=== PATIENT | female | born 1955 | race Caucasian/White ===

== ENCOUNTER → 2017-05-13 | Outpatient (CLI) | payer OTHER ==
--- NOTE | 2017-05-13 09:04 | US ---
EXAMINATION TYPE: US abdomen complete DATE OF EXAM: 05/13/2017 COMPARISON: CT March 14, 2015 & US and ultrasound March 06, 2015 CLINICAL HISTORY: R10.84 ABD PAIN. Abdomen pain, N/V EXAM MEASUREMENTS: Liver Length: 16.0 cm Gallbladder Wall: 0.2 cm CBD: 0.3 cm Spleen: 8.4 cm Right Kidney: 10.9 x 4.5 x 5.3 cm Left Kidney: 10.6 x 4.8 x 5.0 cm Pancreas: visualized portions wnl, head and tail limited by overlying midline bowel gas Liver: slightly heterogeneous echogenicity, otherwise wnl Gallbladder: wnl Evidence for sonographic Villegas's sign: no CBD: visualized portions wnl, limited by overlying bowel gas Spleen: visualized portions wnl, limited by rib shadowing and overlying bowel gas Right Kidney: wnl Left Kidney: fullness of renal pelvis without calyceal dilatation suspect extrarenal pelvis. Upper IVC: wnl Abd Aorta: visualized portions wnl, limited by overlying midline bowel gas The visualized liver is heterogeneous. No suspicious masses or ductal dilatation is seen. The intrahe patic portion of the IVC and proximal abdominal aorta are within normal limits. There is no evidence of cholelithiasis. Common bile duct is unremarkable. The visualized portions of the pancreas are h omogenous. The spleen is unremarkable. Kidneys are symmetric and free of hydronephrosis. No renal lesions are seen. IMPRESSION: Suboptimal study without significant finding seen to account for patient's symptoms.
--- NOTE | 2017-05-13 11:10 | MM ---
Reason for exam: screening (asymptomatic). Last mammogram was performed 1 year and 5 months ago. History: Patient is postmenopausal. Benign ultrasound-guided core biopsy of the right breast, October 27, 2003. Took estrogen for 5 years. Physical Findings: A clinical breast exam by your physician is recommended on an annual basis and results should be correlated with mammographic findings. MG Screening Mammo w CAD Bilateral CC and MLO view(s) were taken. Prior study comparison: December 07, 2015, bilateral MG screening mammo w CAD. September 29, 2014, bilateral MG screening mammo w CAD. The breast tissue is heterogeneously dense. This may lower the sensitivity of mammography. Finding: There are typically benign round calcifications in the left breast. Previous mammotome biopsy in the right breast. Asymmetric breast tissue in the left inferior breast since 2012. ASSESSMENT: Benign, BI-RAD 2 RECOMMENDATION: Routine screening mammogram of both breasts in 1 year.
== END | disposition home or self-care (01) ==
LOC: RADMAMWWP 07:32
PROVIDERS: ATTEND Internal Medicine
DX: Z12.31 Encounter for screening mammogram for malignant neoplasm of breast (principal); R10.84 Generalized abdominal pain
CPT/HCPCS: 76700; G0202

== ENCOUNTER → 2024-08-16 | Outpatient (CLI) | payer MEDICARE, OTHER ==
--- NOTE | 2024-08-16 23:22 | BD ---
EXAMINATION TYPE: Axial Bone Density DATE OF EXAM: 08/16/2024 CLINICAL HISTORY: 69 years old Female. ICD-10 CODE: N95.8 OTHER MENOPAUSAL DISORDERS Height: 67in Weight: 176lb FRAX RISK QUESTIONS: Secondary Osteoporosis: Current Tobacco Use: yes RISK FACTORS HISTORY OF: MEDICATIONS: EXAM MEASUREMENTS: Bone mineral densitometry was performed using the [employer] System. Bone mineral density as measured about the Lumbar spine is: ----- L1-L4(G/cm2): 1.206 T Score Values are as follows: ----- L1: -0.5 ----- L2: 0.0 ----- L3: 0.6 ----- L4: 0.5 ----- L1-L4: 0.2 Z Score Values are as follows: ----- L1: 0.7 ----- L2: 1.2 ----- L3: 1.8 ----- L4: 1.6 ----- L1-L4: 1.4 First dexa at [facility] Bone mineral density about the R hip (g/cm2): 0.939 Bone mineral density about the L hip (g/cm2): 0.914 T Score values are as follows: -----R Neck: -0.2 -----L Neck: -0.4 -----R Total: -0.5 -----L Total: -0.7 Z Score values are as follows: -----R Neck: 1.2 -----L Neck: 1.0 -----R Total: 0.6 -----L Total: 0.4 First dexa at [facility] FRAX%s: The graph provided illustrates a 7.6% chance for a major osteoporotic fx and a 0.9% chance fo r the hips probability for fx in 10 years time. IMPRESSION: Normal (Values between +1 and -1 indicate normal bone mass). Consider repeating this study in 5 year s or sooner if there is some new clinical indication. NOTE: T-SCORE=SD OF THE YOUNG ADULT MEAN. [facility], , 08/16/2024 11:19 PM
--- NOTE | 2024-08-18 08:33 | MM ---
Reason for Exam: Screening (asymptomatic). Last mammogram was performed 7 year(s) and 3 month(s) ago. Patient History: Menarche at age 13. First Full-Term at age 20. Hysterectomy at age 25. Postmenopausal. Patient used Estrogen for 5 years. 10/27/2003, Benign Ultrasound-Guided Core Biopsy on the right side. Risk Values: Jannet 5 year model risk: 1.7%. NCI Lifetime model risk: 4.9%. Prior Study Comparison: 09/29/2014 Bilateral Screening Mammogram, [facility]. 12/07/2015 Bilateral Screening Mammogram, [facility]. 05/13/2017 Bilateral Screening Mammogram, [facility]. Tissue Density: The breasts are heterogeneously dense, which may obscure small masses. Findings: Analyzed By CAD. Right breast: There is no suspicious group of microcalcifications or new suspicious mass. Left breast: There is no suspicious group of microcalcifications or new suspicious mass. Overall Assessment: Negative, BI-RAD 1 Management: Screening Mammogram of both breasts in [address] [facility] will attempt to contact patient to return for supplemental views and ultrasound if indicated. Patient should continue monthly self-breast exams. A clinical breast exam by your physician is recommended on an annual basis. This exam should not preclude additional follow-up of suspicious palpable abnormalities. Note on Jannet scores and lifetime risk: 1. A Jannet score greater than 3% is considered moderate risk. If this is the case, consider specialist referral to assess eligibility for a risk reducing agent. 2. If overall lifetime risk for the development of breast cancer is 20% or higher, the patient may qualify for future screening with alternating mammogram and breast MRI. [facility], , 08/18/2024 8:30 AM. Electronically signed and approved by: Kojo Flanagan DO
== END | disposition home or self-care (01) ==
LOC: RADMAMWWP 07:57
PROVIDERS: ATTEND Internal Medicine
DX: Z13.31 Encounter for screening for depression (principal); R92.333 Mammographic heterogeneous density, bilateral breasts; N95.8 Other specified menopausal and perimenopausal disorders; Z78.0 Asymptomatic menopausal state
CPT/HCPCS: 77063; 77067; 77080